=== PATIENT | female | born 1975 | race Native Hawaiian/Other Pacific Islander ===

== ENCOUNTER → 2021-07-28 15:53 | Outpatient (CLI) | payer OTHER, SELFPAY ==
--- NOTE | 2021-07-28 | DI.RAD.S_ITS ---
PROCEDURE: XR CERVICAL SPINE 2V OR 3V INDICATIONS: Cervicalgia TECHNIQUE: 3 view(s) of the cervical spine were acquired. COMPARISON: [facility], CR, XR THORACIC SPINE 2V, 07/28/2021, 15:48. FINDINGS: Bones: No fractures or dislocations to the T1 level. The lateral masses of C1 appear intact on the odontoid view. No suspicious bony lesions. Loss of lordosis which could be related to muscle spasm, rigidity or simply positional. Soft tissues: No prevertebral soft tissue swelling. IMPRESSION: Loss of lordosis; otherwise normal C-spine. Dictated by: Ethan Hernandez [facility] Interpreted: Clyde Titus MD on 07/28/2021 at 16:22 Transcribed by: MERARI on 07/28/2021 at 16:23 Approved by: Clyde Titus M.D. on 07/28/2021 at 17:47
--- NOTE | 2021-07-28 | DI.RAD.S_ITS ---
PROCEDURE: XR THORACIC SPINE 2V INDICATIONS: Cervicalgia TECHNIQUE: 2 views of the thoracic spine were acquired. COMPARISON: None. FINDINGS: Bones: No fractures or dislocations. No suspicious bony lesions. 12 pairs of ribs are noted, and appear intact where visualized. Minimal levocurvature. Soft tissues: No paravertebral stripe thickening. IMPRESSION: Minimal levocurvature centered at the thoracolumbar level; otherwise normal T-spine. Dictated by: Ethan Hernandez [facility] Interpreted: Clyde Titus MD on 07/28/2021 at 16:22 Transcribed by: MERARI on 07/28/2021 at 16:22 Approved by: Clyde Titus M.D. on 07/28/2021 at 17:46
== END ==
PROVIDERS: PCP Family Medicine; Referring Provider Family Medicine; Visit Provider Family Medicine
DX: M54.2 Cervicalgia (principal)
CPT/HCPCS: 72040; 72070

== ENCOUNTER → 2022-01-09 15:03 | Outpatient (CLI) | payer OTHER, SELFPAY ==
--- NOTE | 2022-01-09 15:05 | DI.MRI.S_ITS ---
PROCEDURE: MR THORACIC SPINE WO CON INDICATIONS: back pain TECHNIQUE: Noncontrast sagittal T1 spine echo and T2 fast spin echo, sagittal STIR, and T2 fast spin echo through the thoracic spine. COMPARISON: [facility], MR, MR SHOULDER RT WO CON, 01/09/2022, 15:16. [facility], MR, MR CERVICAL SPINE WO CON, 01/09/2022, 15:40. [facility], CR, XR THORACIC SPINE 2V, 07/28/2021, 15:48. FINDINGS: Image quality: Excellent. Alignment and Curvature: There is normal bony alignment. Bone Marrow: Marrow is of normal overall signal. No acute vertebral body compression fractures. Spinal Cord: Visualized spinal cord is normal in size and signal. Paraspinous Soft Tissues: No paravertebral masses. Miscellaneous: Mild focal disc space narrowing is seen at the T11-T12 level, without significant neural foraminal narrowing or central canal narrowing. No significant abnormality is seen elsewhere. IMPRESSION: Mild focal degenerative change is seen at T11-T12. No significant neural foraminal or central canal narrowing can be seen throughout. Dictated by: Chet Sibley M.D. on 01/09/2022 at 15:46 Approved by: Chet Sibley M.D. on 01/09/2022 at 15:48
--- NOTE | 2022-01-09 15:05 | DI.MRI.S_ITS ---
PROCEDURE: MR SHOULDER RT WO CON INDICATIONS: right shoulder pain TECHNIQUE: Noncontrast oblique coronal T2 fast spin echo with fat saturation, oblique sagittal T1 spin echo and T2 fast spin echo with fat saturation, axial T1 spin echo and T2 fast spin echo with fat saturation through the shoulder. COMPARISON: None. FINDINGS: Image quality: Excellent. Rotator cuff: There is focal moderate grade intrasubstance tearing at the crossover region between the supraspinatus and infraspinatus tendons at the distal footprint measuring approximately 0.4 cm in anterior-posterior dimension superimposed on mild tendinosis. The teres minor and subscapularis tendons are intact. There is no significant rotator cuff muscle atrophy. Bones and bursae: No acute trabecular bone injury or fracture. No focal glenohumeral cartilage defect is seen. Mild degenerative changes are seen at the acromioclavicular joint. There is a trace amount of subacromial/subdeltoid bursal fluid. No significant glenohumeral effusion. Capsule and soft tissues: There is nondisplaced tearing of the superior labrum. Mild tendinosis of the biceps long head tendon is seen. There is mild partial effacement of the fat in the rotator interval. The glenohumeral ligaments appear to be intact. IMPRESSION: 1. Focal moderate grade partial intrasubstance tearing at the supraspinatus/infraspinatus footprint crossover region superimposed on mild tendinosis. 2. Mild biceps long head tendinosis. 3. Nondisplaced tearing of the superior labrum. 4. Mild acromioclavicular osteoarthrosis. Dictated by: Bernabe Alvarado M.D. on 01/09/2022 at 16:58 Approved by: Bernabe Alvarado M.D. on 01/09/2022 at 17:01
--- NOTE | 2022-01-09 15:06 | DI.MRI.S_ITS ---
PROCEDURE: MR CERVICAL SPINE WO CON INDICATIONS: Cervicalgia TECHNIQUE: Noncontrast sagittal T1 spin echo and T2 fast spin echo, sagittal STIR, foraminal oblique sagittal T2 fast spin echo, and axial gradient echo or T2 fast spin echo through the cervical spine. COMPARISON: [facility], CR, XR CERVICAL SPINE 2V OR 3V, 07/28/2021, 15:48. FINDINGS: Image quality: Excellent. Alignment and Curvature: There is loss of normal cervical lordosis. Bone Marrow: Marrow demonstrates normal overall signal. Mild reactive signal throughout the endplates of the cervical spine. Spinal Cord: Visualized spinal cord has normal size and signal. No cerebellar tonsillar herniation. Paraspinous Soft Tissues: No paravertebral masses. Prevertebral soft tissues are normal in thickness. C2-C3: Mild disc desiccation and diffuse disc bulge. No significant canal, or foraminal stenosis. C3-C4: Congenital canal stenosis. Mild disc desiccation and diffuse disc bulge. Mild canal stenosis. No foraminal stenosis. C4-C5: Congenital canal stenosis. Mild disc desiccation and diffuse disc bulge. Mild facet and uncovertebral hypertrophy bilaterally. Mild canal stenosis. Mild bilateral foraminal stenosis. C5-C6: Congenital canal stenosis. Mild disc desiccation and diffuse disc bulge. Mild facet and uncovertebral hypertrophy. Mild canal stenosis. No foraminal stenosis. C6-C7: Congenital canal stenosis. Mild disc desiccation and diffuse disc bulge. Mild facet and uncovertebral hypertrophy bilaterally. Mild canal stenosis. Mild bilateral foraminal stenosis. C7-T1: Normal appearance. IMPRESSION: 1. Diffuse congenital canal stenosis with superimposed disc and facet disease, as well as uncovertebral hypertrophy. 2. Mild multilevel canal and foraminal stenoses. No neural impingement. Dictated by: Azra Keller M.D. on 01/09/2022 at 16:32 Transcribed by: SARAH on 01/09/2022 at 16:34 Approved by: Azra Keller M.D. on 01/09/2022 at 16:53
== END ==
PROVIDERS: PCP Family Medicine; Referring Provider Family Medicine; Visit Provider Family Medicine
DX: M50.31 Other cervical disc degeneration, high cervical region (principal); M48.02 Spinal stenosis, cervical region; M47.814 Spondylosis without myelopathy or radiculopathy, thoracic region; M75.111 Incomplete rotator cuff tear or rupture of right shoulder, not specified as traumatic; M19.011 Primary osteoarthritis, right shoulder; M25.511 Pain in right shoulder
CPT/HCPCS: 72141; 72146; 73221